=== PATIENT | male | born 1935 | race Caucasian/White ===

== ENCOUNTER 2024-03-17 09:15 | Day surgery (SDC) | payer MEDICARE ==
[~2024-03-17] VITALS: Ht 175.3 cm; Wt 96.3 kg
[~2024-03-17 09:15] MED LIST: ALBU90AE INH; ASCO500C17 PO; ASPI-1265 PO; ATOR40TA PO; CARB1TAB36; COU4T PO; DOCU100C40 PO; DONE10TA19 PO; ESCI-8 PO; FAMO-1 PO; FLO0.4C PO; HYOS0.1285 SL; LOSA1TAB36 PO; MIRA50TA PO; OMEG10006 PO; PANT-47 PO; PANT40TA39 PO; PREN1TAB23 PO; PRIM250T8 PO; PROP10TA10 PO; SIME125C43 PO; TRAM50TA2 PO; VITA-268 PO; VITC500T PO; potassium PO
[2024-03-17 10:08] VITALS: BP 138/69; PULSE 62; RESP 16
[2024-03-17] MEDS ORDERED: propofol inj 20 ML IV ONE (11:01)
[2024-03-17 11:10] VITALS: BP 130/71; PULSE 75; RESP 16; O2SAT 97
[2024-03-17 11:20] VITALS: BP 136/81; PULSE 84; RESP 12; O2SAT 96
[2024-03-17 11:30] VITALS: BP 137/77; PULSE 80; RESP 13; O2SAT 94
[2024-03-17 11:40] VITALS: BP 138/88; PULSE 72; RESP 12; O2SAT 95
== END 2024-03-17 11:46 | disposition home or self-care (01) ==
LOC: GI LAB 09:15
PROVIDERS: ATTEND Internal Medicine Gastroenterology
DX: R13.10 Dysphagia, unspecified (principal); R12 Heartburn; I10 Essential (primary) hypertension; I48.91 Unspecified atrial fibrillation; K21.9 Gastro-esophageal reflux disease without esophagitis; Z86.73 Personal history of transient ischemic attack (TIA), and cerebral infarction without residual deficits
CPT/HCPCS: 43239; A4620; J2704; J7030; Z7512; 88305; 88342